=== PATIENT | female | born 1985 | race Caucasian/White ===

== ENCOUNTER 2018-06-16 06:00 | Inpatient (IN) | payer MEDICAID ==
[~2018-06-16] VITALS: Ht 172.7 cm; Wt 93.3 kg
[~2018-06-16 06:00] MED LIST: FERR240T9 PO; PREN1TAB62 PO
[2018-06-16 06:37] VITALS: BMI 24.8
[2018-06-16] MEDS ORDERED: LACTATED RINGER'S 1,000 ML IV PRN (06:38)
[2018-06-16 06:43] VITALS: Ht 172.7 cm; Wt 93.3 kg
[2018-06-16] MEDS ORDERED: IBUPROFEN 600 MG TAB PO PRN (07:00)
[2018-06-16] MEDS ORDERED: BUTORPHANOL 2 MG INJ IV PRN (07:00)
[2018-06-16] MEDS ORDERED: LIDOCAINE 1% (MPF) 30 ML INJ INJ PRN ×2 (07:00→08:30)
[2018-06-16] MEDS ORDERED: MINERAL OIL LIGHT 10 ML VIAL TOP ONE (07:00)
[2018-06-16] MEDS: LACTATED RINGER'S 1,000 ML IV SCH ×3 (07:42→22:38)
[2018-06-16] MEDS ORDERED: CARBOPROST 250 MCG INJ IM PRN ×2 (08:30→12:00)
[2018-06-16] MEDS ORDERED: METHYLERGONOVINE 0.2 MG INJ IM PRN (08:30)
[2018-06-16] MEDS ORDERED: OXYTOCIN 30 UNITS/LR 500 ML IV PRN ×2 (08:30→12:00)
[2018-06-16] MEDS ORDERED: MISOPROSTOL 200 MCG TAB PR PRN ×2 (08:30→12:00)
[2018-06-16] MEDS ORDERED: OXYTOCIN 30 UNITS/LR 500 ML IV SCH (08:30)
[2018-06-16] MEDS: LACTATED RINGER'S 1,000 ML IV* SCH ×2 (11:40→19:40)
--- NOTE | 2018-06-16 11:40 | HP ---
Date/Time of Note Date/Time of Note DATE: 06/16/18 TIME: 11:38 OB - History Hx of Present Free Text/Dictation 32 YO with IUP at 40.6 weeks with EDC 06/10/2018 who was admitted in labor. she is 8 cm. AROM done with clear fluid. EFW 3385 gr. pelvic adequate on exam. Ultrasounds: Normal mid trimester US Obstetrical Complications: None Past Family/Social History * Past Medical, Surgical, Family and Obstetric Histories reviewed from chart. OB Admission Exam Physical Exam HEENT: WNL Heart: Rhythm Normal Lungs: Clear, Equal Abdomen: WNL Extremities: Normal Reflexes: Normal Cervical Dilatation: 8cm Effacement: 100% Station: 0 Membranes: Ruptured Amniotic Fluid: Clear Last 72 hourBlood Glucose Bedside Glucose - 72 Hours Test 06/16/18 09:45 Bedside Glucose 89 mg/dL (70-220) Last 72 hours Lab Results CBC & BMP 06/16/18 06:50 OB Assessment/Plan Reason for admission: active labor Plan: Expectant Management VANESSA KHANNA MD Jun 16, 2018 11:40
--- NOTE | 2018-06-16 11:59 | LDN ---
Date/Time of Note Date/Time of Note DATE: 06/16/18 TIME: 11:58 Delivery Summary s/p of viable male infant. placenta delivered intact and spontaneously Placenta Delivered: Spontaneously Meconium: Thick Perineal laceration: 0 Laceration repair: 0 Anesthesia type: None Estimated blood loss: 300 Sponge & Needle done & correct: Yes All needle counts correct: Yes Any foreign bodies felt in the: No Delivery Information Sex Sex: male Apgars 1 Minute: 9 5 Minute: 9 Suctioning Nose & mouth suctioned at melo: No Delee suction performed: No Umbilical Cord Umbilical cord with: 3 Vessels Cord presentations: no nuchal cord Nuchal cord present X: 0 Cord Blood was obtained: Yes Mother & Baby Disposition Disposition Mom & Baby to Maternity; Good: Yes VANESSA KHANNA MD Jun 16, 2018 11:59
[2018-06-16] MEDS: IBUPROFEN 600 MG TAB PO SCH ×3 (12:00→23:43)
[2018-06-16] MEDS ORDERED: MAGNESIUM HYDROXIDE 30ML CUP PO PRN (12:00)
[2018-06-16] MEDS ORDERED: SENNA/DOCUSATE NA (8.6MG/50MG) TAB PO PRN (12:00)
[2018-06-16] MEDS ORDERED: ONDANSETRON 4 MG INJ IV PRN (12:00)
[2018-06-16] MEDS ORDERED: NA PHOSPHATE/BIPHOS 133 ML ENEMA PR PRN (12:00)
[2018-06-16] MEDS ORDERED: DIPHENHYDRAMINE 25 MG CAP PO PRN (12:00)
[2018-06-16] MEDS ORDERED: DIPHENHYDRAMINE 50 MG INJ IV PRN (12:00)
[2018-06-16] MEDS ORDERED: ONDANSETRON 4 MG TAB PO PRN (12:00)
[2018-06-16] MEDS ORDERED: DIBUCAINE 1% 30 GM OINT TOP PRN (12:00)
[2018-06-16] MEDS ORDERED: WITCH HAZEL/GLYCERIN PAD PR PRN (12:00)
[2018-06-16] MEDS ORDERED: LANOLIN HPA 1 PKT TOP PRN (12:00)
[2018-06-16] MEDS ORDERED: HYDROCODONE/APAP (5/325) TAB PO PRN ×2 (12:00)
[2018-06-16] MEDS ORDERED: BENZOCAINE 20% 56 ML SPRAY TOP PRN (12:00)
[2018-06-16] MEDS: OXYTOCIN 30 UNITS/LR 500 ML IV SCH ×2 (12:05→16:50)
[2018-06-16 16:15] VITALS: BP 113/63; PULSE 63; RESP 17
[2018-06-16 20:10] VITALS: BP 107/64; PULSE 73; RESP 20
[2018-06-16] MEDS: SENNA/DOCUSATE NA (8.6MG/50MG) TAB PO SCH (21:50)
[2018-06-17] VITALS: BP 120/68; PULSE 78; RESP 20
[2018-06-17] MEDS: LACTATED RINGER'S 1,000 ML IV* SCH (03:40)
[2018-06-17 04:20] VITALS: BP 110/69; PULSE 78; RESP 20
[2018-06-17] MEDS: IBUPROFEN 600 MG TAB PO SCH ×3 (05:37→17:58)
--- NOTE | 2018-06-17 06:11 | DS ---
Date/Time of Note Date/Time of Note DATE: 06/17/18 TIME: 06:06 Obstetrical Discharge Record Final Diagnosis Final Diagnosis: Term delivered Vaginal Delivery Obstetrical Delivery: Spontaneous Complications Augmentation: Yes Induction: No Rupture of Membranes: No Condition on Discharge Physical Assessment Voiding: Yes Bowel Movement: Yes Breast: Soft, non-tender, Filling Fundus: Firm Abdomen and Incision: soft, not tender Calf Tenderness: No Patient Condition: Good VANESSA KHANNA MD Jun 17, 2018 06:11
[2018-06-17] MEDS: LACTATED RINGER'S 1,000 ML IV SCH (06:38)
[2018-06-17 08:35] VITALS: BP 108/54; PULSE 98; RESP 18
[2018-06-17] MEDS: SENNA/DOCUSATE NA (8.6MG/50MG) TAB PO SCH ×2 (09:45→22:06)
[2018-06-17 12:25] VITALS: BP 120/62; PULSE 66; RESP 17
[2018-06-17 16:10] VITALS: BP 111/70; PULSE 60; RESP 18
[2018-06-17 19:50] VITALS: BP 124/70; PULSE 62; RESP 18
[2018-06-18 04:44] VITALS: BP 120/70; PULSE 62; RESP 18
[2018-06-18] MEDS: IBUPROFEN 600 MG TAB PO SCH ×3 (05:53→12:31)
[2018-06-18 08:30] VITALS: BP 113/77; PULSE 75; RESP 16
[2018-06-18] MEDS ORDERED: MEASLES,MUMPS,RUBELLA VACCINE INJ SC* ONE (09:00)
[2018-06-18] MEDS ORDERED: DIPHTH/TET/ACEL PERTUSS (ADULT) 0.5 ML VIAL IM* ONE (09:00)
[2018-06-18] MEDS ORDERED: VARICELLA VACCINE LIVE/PF 1,350 UNIT/0.5 ML ML SC* ONE (09:00)
[2018-06-18] MEDS: SENNA/DOCUSATE NA (8.6MG/50MG) TAB PO SCH (09:30)
--- NOTE | 2018-06-19 14:12 | DELSUM ---
Delivery Summary A-C Datetime Report Generated by CPN: 06/19/2018 14:12 DELIVERY PERSONNEL Web Search Evaluator: Carlito, Mehnaz MATERNAL INFORMATION Delivery Anesthesia: None Medications in Delivery: oxytocin 30 mu in 500 ml of lr Delivery QBL (ml): 300 Placenta Cultured: No Maternal Complications: None LABOR SUMMARY EDC: 06/10/2018 00:00 No. Babies in Womb: 1 Attempted: No Labor Anesthesia: None LABOR INFORMATION Reason for Induction: Not Applicable Onset of Labor: 06/16/2018 06:00 Oxytocin: N/A Group B Beta Strep: Negative Steroids Given: None Reason Steroids Not Administered: Not Applicable MEMBRANES Membranes Rupture Method: Artificial Rupture of Membranes: 06/16/2018 11:22 Length of Rupture (hr): 0.50 Amniotic Fluid Color: Bloody Amniotic Fluid Amount: Small Amniotic Fluid Odor: None STAGES OF LABOR Stage 3 hr: 0 Stage 3 min: 2 Total Time in Labor hr: 5 Total Time in Labor min: 54 VAGINAL DELIVERY Episiotomy: None Laceration Extension: N/A Laceration Type: None Initial Vag Sponge Count: 10 Final Vag Sponge Count: 10 Initial Vag Sharps Count: 1 Final Vag Sharps Count: 1 Sponge Count Correct: Yes; Vaginal Sweep Performed Sharps Count Correct: Yes BABY A INFORMATION Infant Delivery Date/Time: 06/16/2018 11:52 Method of Delivery: Vaginal Born in Route : Yes : N/A Forceps: N/A Vacuum Extraction: N/A Shoulder Dystocia : N/A SHOULDER DYSTOCIA BABY A Infant Delivery Date/Time: 06/16/2018 11:52 PRESENTATION/POSITION BABY A Presentation: Cephalic Cephalic Presentation: Vertex Vertex Position: Left Occipital Anterior Breech Presentation: N/A PLACENTA INFORMATION BABY A Placenta Delivery Time : 06/16/2018 11:54 Placenta Method of Delivery: Spontaneous Placenta Status: Delivered SCORES BABY A Heart Rate 1 min: >100 bpm Resp Effort 1 min: Good Cry Reflex Irritability 1 min: Cough/Sneeze/Pulls Away Muscle Tone 1 min: Active Motion Color 1 min: Body [place], Extremit Blue SCORE 1 MIN: 9 Heart Rate 5 min: >100 bpm Resp Effort 5 min: Good Cry Reflex Irritability 5 min: Cough/Sneeze/Pulls Away Muscle Tone 5 min: Active Motion Color 5 min: Body [place], Extremit Blue SCORE 5 MIN: 9 INFORMATION BABY A Gestational Age at Delivery: 40.6 Gestational Status: Full Term- 39- 40.6 Weeks Infant Outcome : Liveborn Infant Condition : Stable Infant Sex: Male IDENTIFICATION/MEDS BABY A ID Band Number: [id number] ID Band Location: Right Leg; Left Arm Sensor Applied: Yes Sensor Number: [id number] Sensor Location : Cord Clamp Vitamin K Given : Not Given Erythromycin Given: Not Given WEIGHT/LENGTH BABY A Birthweight (gm): 3475 Weight (lb): 7 Infant Weight (oz): 11 Infant Length (in): 21.00 Length (cm): 53.34 CORD INFORMATION BABY A No. Cord Vessels: 3 Nuchal Cord : N/A Cord Blood Taken: Yes Infant Suction: Mouth; Nose ASSESSMENT BABY A Infant Complications: Meconium Physical Findings at Delivery: Within Normal Limits Respirations: Appears Normal [employer] Rental Clerk/ALS Called : No Care By: kassidy lopez Transferred To: Remains with Mother
== END 2018-06-18 14:12 | disposition home or self-care (01) | DRG 807 ==
LOC: L-D 06:15 → PP1 16:03
PROVIDERS: ADMIT Specialist; ATTEND Specialist
PROC: 10907ZC Drainage of Amniotic Fluid, Therapeutic from Products of Conception, Via Natural or Artificial Opening (ICD-10-PCS; 2018-06-16)
PROC: 10E0XZZ Delivery of Products of Conception, External Approach (ICD-10-PCS; principal; 2018-06-16 06:00)
DX: O77.0 Labor and delivery complicated by meconium in amniotic fluid (principal); Z37.0 Single live birth; Z3A.40 40 weeks gestation of pregnancy
CPT/HCPCS: 76815; 82962; 85025; 85610; 85730; 86592; 86900; 86901; 87340; 90716; J2210; J2590; J7120